=== PATIENT | male | born 1955 | race Caucasian/White ===

== ENCOUNTER 2024-03-24 12:44 | Emergency (ER) | payer MEDICARE ==
[~2024-03-24] VITALS: Ht 172.7 cm; Wt 69.0 kg
[2024-03-24 12:53] VITALS: BP 122/76
[2024-03-24] MEDS ORDERED: LIDOcaine HCl 1% (Local Anesth.) 20 ML VIAL STI STA (12:57)
[2024-03-24 13:00] VITALS: BP 124/73
[2024-03-24] MEDS ORDERED: SODIUM CHLORIDE 500 ML BTL IR ONE (13:00)
[2024-03-24] MEDS ORDERED: Diph, Acellular Pertussis, Tet 0.5 ML/VIAL (Tdap) SDV IM ONE (13:00)
[2024-03-24] MEDS ORDERED: NEOMYCIN-BACITRACIN-POLYMYXIN 0.5 GM/PAK PAK TOP ONE (13:00)
[2024-03-24 13:30] VITALS: BP 107/67
[2024-03-24] MEDS ORDERED: KEFLEX500 MG PO (13:38)
[2024-03-24 14:00] VITALS: BP 109/76
[2024-03-24 14:30] VITALS: BP 109/72
== END 2024-03-24 14:50 | disposition home or self-care (01) ==
LOC: ED 12:44
PROC: 0HQLXZZ Repair Left Lower Leg Skin, External Approach (ICD-10-PCS; principal; 2024-03-24)
DX: S81.012A Laceration without foreign body, left knee, initial encounter (principal); R55 Syncope and collapse; K50.90 Crohn's disease, unspecified, without complications; F41.9 Anxiety disorder, unspecified; E78.5 Hyperlipidemia, unspecified; W26.8XXA Contact with other sharp object(s), not elsewhere classified, initial encounter